=== PATIENT | female | born 1940 | race Two or more races ===

== ENCOUNTER 2024-11-23 10:46 | Emergency (ER) | payer OTHER ==
[~2024-11-23] VITALS: Ht 160 cm; Wt 61.2 kg
[2024-11-23] MEDS ORDERED: CHILDREN'S ASPI81 MG (11:39)
[2024-11-23] MEDS ORDERED: PLAVIX75 MG PO (11:40)
[2024-11-23] MEDS ORDERED: TRAVOPROST2.5 ML OP (11:40)
[2024-11-23] MEDS ORDERED: JANUVIA25 MG PO (11:40)
[2024-11-23] MEDS ORDERED: SYNTHROID112 MCG PO (11:40)
[2024-11-23] MEDS ORDERED: ATORVASTATIN CA20 MG PO (11:41)
[2024-11-23] MEDS ORDERED: DILTIAZEM 24HR180 MG PO (11:41)
[2024-11-23] MEDS ORDERED: LOSARTAN POTAS100 MG PO (11:41)
[2024-11-23] MEDS ORDERED: CILOSTAZOL50 MG PO (11:41)
[2024-11-23] MEDS ORDERED: CLONAZEPAM1 MG PO (11:42)
[2024-11-23] MEDS ORDERED: OLANZAPINE5 MG PO (11:42)
[2024-11-23] MEDS ORDERED: TRELEGY ELLIPT1 EACH IH (11:42)
[2024-11-23] MEDS ORDERED: ANASTROZOLE1 MG PO (11:42)
[2024-11-23] MEDS ORDERED: TAGRISSO80 MG PO (11:42)
[2024-11-23] MEDS ORDERED: BUSPIRONE HCL10 MG PO (11:43)
[2024-11-23] MEDS ORDERED: DICYCLOMINE HCL 20 MG TABLET PO ONE (13:15)
[2024-11-23] MEDS ORDERED: FAMOtidine 10 MG/ML (4ML VIAL) IV ONE (13:15)
[2024-11-23 14:05] LABS: ALBUMIN 3.7 gm/dL (3.4-5.0); BILIRUBIN TOTAL 0.53 mg/dL (0.3-1.2); CALCIUM 8.9 mg/dL (8.5-10.1); CREATININE SERUM 0.79 mg/dL (0.55-1.02); GFR 69.5; GLOBULINA 3.5 G/DL (2.4-3.5); POTASSIUM 3.81 mEq/L (3.5-5.1); TOTAL PROTEIN 7.2 gm/dL (6.4-8.2)
[2024-11-23 14:08] LABS: HEMATOCRIT 32.4 % (36.0-45.00); HEMOGLOBIN 10.3 g/dL (12.0-15.00); MEAN CORPUSCULAR HEMOGLOBIN 25.4 pg (27.00-32.0); MEAN CORPUSCULAR HGB CONC 31.7 g/dl (32.0-36.0); PH,URINE 6.5 (5.0-8.0); PLATELET COUNT 202 K/uL (150-450); RED BLOOD COUNT 4.05 M/uL (4.00-6.00); RED CELL DISTRIBUTION WIDTH 20.3 % (11.5-14.5); URINE APPEARANCE Clear; URINE BILIRRUBIN Negative (NEGATIVE); URINE BLOOD Negative; URINE COLOR Yellow; URINE GLUCOSE Negative (NEGATIVE); URINE KETONE Negative (NEGATIVE); URINE LEUKOCYTE Trace; URINE NITRATE Negative; URINE PROTEIN Negative (NEGATIVE); URINE UROBILINOGEN 0.2 E.U./dl
[2024-11-23 14:41] LABS: URINE BACTERIA 414.5 uL (0.0-1933); URINE EPITHELIAL CELLS 6.8 uL (0.0-38.8); URINE WBC 62.8 uL (0.0-23.2)
[2024-11-23 15:20] LABS: URINE RBC 0.7 uL (0.0-20.8)
== END 2024-11-23 18:37 | disposition home or self-care (01) ==
LOC: ER 10:48
PROVIDERS: General Practice
DX: R10.32 Left lower quadrant pain (principal); K57.30 Diverticulosis of large intestine without perforation or abscess without bleeding; I10 Essential (primary) hypertension; E11.9 Type 2 diabetes mellitus without complications; Z79.84 Long term (current) use of oral hypoglycemic drugs; E03.9 Hypothyroidism, unspecified; Z88.8 Allergy status to other drugs, medicaments and biological substances; Z85.3 Personal history of malignant neoplasm of breast; Z85.118 Personal history of other malignant neoplasm of bronchus and lung
CPT/HCPCS: 36415; 74176; 96365; 99283; J3490

== ENCOUNTER 2024-12-27 07:31 | Outpatient (CLI) | payer OTHER ==
[~2024-12-27 07:31] MED LIST: ANASTROZOLE1 MG PO; ATORVASTATIN CA20 MG PO; BUSPIRONE HCL10 MG PO; CHILDREN'S ASPI81 MG; CILOSTAZOL50 MG PO; CLONAZEPAM1 MG PO; DILTIAZEM 24HR180 MG PO; JANUVIA25 MG PO; LOSARTAN POTAS100 MG PO; OLANZAPINE5 MG PO; PLAVIX75 MG PO; SYNTHROID112 MCG PO; TAGRISSO80 MG PO; TRAVOPROST2.5 ML OP; TRELEGY ELLIPT1 EACH IH
== END 2024-12-27 07:33 | disposition home or self-care (01) ==
LOC: NUCLEAR 07:31
DX: R06.09 Other forms of dyspnea (principal); C50.812 Malignant neoplasm of overlapping sites of left female breast